=== PATIENT | male | born 1980 | race Caucasian/White ===

== ENCOUNTER 2018-05-01 18:59 | Emergency (ER) | payer MEDICAID, OTHER ==
[2018-05-01] MEDS: OXYCODONE/ACETAMINOPHEN (5/325) TAB PO (20:09)
[2018-05-01] MEDS: DIPHTH/TET/ACEL PERTUSS (ADULT) 0.5 ML VIAL IM* (20:10)
[2018-05-01] MEDS: LIDOCAINE 1% (MPF) 30 ML INJ INJ (20:20)
== END 2018-05-01 21:55 | disposition home or self-care (01) ==
LOC: E/R 18:59
DX: S01.81XA Laceration without foreign body of other part of head, initial encounter (principal); S00.33XA Contusion of nose, initial encounter; S00.81XA Abrasion of other part of head, initial encounter; W01.118A Fall on same level from slipping, tripping and stumbling with subsequent striking against other sharp object, initial encounter; Y92.89 Other specified places as the place of occurrence of the external cause; Z23 Encounter for immunization
CPT/HCPCS: 12013; 70450; 70486; 90471; 90715; 99284-25